=== PATIENT | male | born 1990 | race Caucasian/White ===

== ENCOUNTER 2016-11-14 23:29 | Emergency (ER) | payer OTHER ==
[~2016-11-14] VITALS: Ht 193 cm; Wt 113.8 kg
[~2016-11-14 23:29] MED LIST: CLR10 PO; FURO40TA3 PO; POTA10CA28 PO
[2016-11-14 23:33] VITALS: TEMP 36.9; Ht 193 cm; Wt 113.8 kg
[2016-11-15] MEDS ORDERED: GABA800T PO (00:12)
[2016-11-15] MEDS ORDERED: CLON0.5T3 PO (00:12)
[2016-11-15] MEDS ORDERED: CTP1X PO (00:14)
[2016-11-15] MEDS ORDERED: PRLSR20 PO (00:15)
[2016-11-15] MEDS ORDERED: SERT-234 PO (00:20)
[2016-11-15] MEDS ORDERED: QUET1TAB37 PO (00:20)
[2016-11-15] MEDS ORDERED: QUET1TAB10 PO (00:22)
[2016-11-15] MEDS ORDERED: SRQ200 PO (00:24)
[2016-11-15] MEDS ORDERED: DIPH25TA32 PO (00:25)
[2016-11-15] MEDS ORDERED: [UNRECOGNIZED DRUG - CODE] TOP (00:28)
[2016-11-15] MEDS ORDERED: IBUP-1427 PO (00:28)
[2016-11-15] MEDS ORDERED: CHLO1TAB45 PO (00:30)
[2016-11-15] MEDS ORDERED: BENZ1GEL2 PO (00:32)
[2016-11-15] MEDS ORDERED: ALUM-30 PO (00:34)
[2016-11-15] MEDS ORDERED: MOMLX PO (00:34)
[2016-11-15] MEDS ORDERED: [UNRECOGNIZED DRUG - CODE] PO (00:35)
[2016-11-15 00:39] LABS: BASO % 0.6 %; BASO ABS # 0.05 K/uL (0-0.2); COMPLETE YES; HEMATOCRIT 37.6 % (42-52); LYMPH % 28.4 %; LYMPH ABS # 2.27 K/uL (1.2-3.4); MEAN CELL VOLUME 85.5 fL (80-100); MEAN CORPUSCULAR HEMOGLOBIN 29.5 pg (25-34); MEAN CORPUSCULAR HGB CONC 34.6 g/dl (32-36); MEAN PLATELET VOLUME 9.5 fL (7.4-10.4); MONO % 10.6 %; NEUT % 56.4 %; PLATELET COUNT 272 K/uL (130-400); WHITE BLOOD COUNT 7.99 K/uL (4.8-10.8)
[2016-11-15 01:13] LABS: ALT/SGPT 65 U/L (12-78); AST/SGOT 35 U/L (15-37); BLOOD UREA NITROGEN 17 mg/dl (7-18); BUN/CREATININE RATIO 19.9 (10-20); CALCIUM 8.7 mg/dl (8.5-10.1); CARBON DIOXIDE 28 mmol/L (21-32); CHLORIDE 108 mmol/L (98-107); CREATININE 0.87 mg/dl (0.60-1.40); GLUCOSE 134 mg/dl (70-99); POTASSIUM 4.1 mmol/L (3.5-5.1); SODIUM 142 mmol/L (136-145)
[2016-11-15 01:17] LABS: ALKALINE PHOSPHATASE 84 U/L (45-117)
[2016-11-15 01:35] VITALS: BP 105/73; PULSE 99; O2SAT 98
--- NOTE | 2016-11-15 01:52 | EMERGENCY ROOM VISIT NOTE ---
History Report prepared by Gino: Rod Chapa Under the Supervision of: Dr. Costa Machado M.D. First contact with patient: 23:51 Chief Complaint: SWELLING TO EXTREMITY Stated Complaint: HAND/FOOT SWELLING History of Present Illness The patient is a 26 year old male who presents to the Emergency Room with complaints of constant hand and feet swelling for over a week. The patient states that he has never had swelling like this in the past, and he was having shortness of breath earlier. He states he was outside and then when he came back and he felt short of breath briefly. He denies any chest pain. He states that he was put on Lasix 6 days ago for his swelling. He states he is drowsy currently because he did not sleep last night. The patient additionally states that he is on Thorazine and Seroquel which make him sleepy. He notes that he has foot pain on the bottom of his feet when he walks but otherwise denies leg pain. Source of History: patient Onset: over a week ago Position: hand (bilateral), foot (bilateral) Quality: other (swelling) Timing: constant Associated Symptoms: + SOB Review of Systems See HPI for pertinent positives & negatives. A total of 10 systems reviewed and were otherwise negative. Past Medical & Surgical Medical Problems: (1) Drug abuse Social History Smoking Status: Current Every Day Smoker Marital Status: single Occupation Status: unemployed Current/Historical Medications Scheduled Clonazepam (Klonopin), 0.5 MG PO TID Clonidine HCl (Clonidine HCl), 0.1 MG PO AMHS Furosemide (Lasix), 40 MG PO QAM Gabapentin (Neurontin), 800 MG PO QID Loratadine (Claritin), 10 MG PO QAM Omeprazole (Prilosec), 20 MG PO DAILY Potassium Chloride (Micro-K Ext Rel), 10 MEQ PO QAM Quetiapine Fumarate (Seroquel), 300 MG PO HS Quetiapine Fumarate (Seroquel), 200 MG PO HS Quetiapine Fumarate (Seroquel), 200 MG PO bid @ 0900 & 1400 Sertraline (Zoloft), 100 MG PO QAM Scheduled PRN Alum & Mag Hydrox-Simethicone (Mylanta), 30 ML PO QID PRN for gastric distress Benzocaine (Dental) (Oral Analgesic Maximum St), 1 APPLN PO Q4 PRN for mouth pain Chlorpromazine Hcl (Thorazine), 100 MG PO Q4 PRN for psychosis/agitation Diphenhydramine Hcl (Diphenhydramine Hcl), 25 MG PO TID PRN for Anxiety Hydrocortisone (Topical) (Cortaid Maximum Strength), 1 APPLN TOP BID PRN for eczema Ibuprofen Tab (Motrin), 600 MG PO Q6 PRN for Pain Magnesium Hydroxide (Milk of Magnesia), 30 ML PO DAILY PRN for Constipation Nicotine Polacrilex (Nicotine), 2 PIECE PO UD PRN for smoke break Allergies Coded Allergies: Lorazepam (Verified Allergy, Unknown, unknown, 11/15/16) Physical Exam Vital Signs Date Time Temp Pulse Resp B/P (MAP) Pulse Ox O2 Delivery O2 Flow Rate FiO2 11/15/16 01:35 99 18 105/73 98 Room Air 11/14/16 23:33 36.9 112 18 128/82 96 Room Air Physical Exam Constitutional: Vital signs reviewed. Eyes: Pupils are equal round reactive to light. Conjunctiva are noninjected. ENT: Pharynx is clear without erythema or exudate. Mucous membranes are moist. Neck supple without meningeal signs. Respiratory: Clear to auscultation bilaterally. Breath sounds are equal bilaterally. Cardiovascular: Regular rate and rhythm. No rubs or gallops. GI: Soft, nondistended and nontender. Bowel sounds are present. Musculoskeletal: Pedal edema. No significant swelling to the hands. No calf tenderness. Integumentary: No cyanosis. Neurological: The patient is drowsy. No focal deficits. Psychiatric: Normal affect. Medical Decision & Procedures ER Provider Diagnostic Interpretation: Chest x-ray per my interpretation shows no acute cardiopulmonary process. There is no evidence of pulmonary edema or cardiomegaly. Doppler ultrasound showed no signs of DVT. It showed some groin lymphadenopathy. Laboratory Results 11/15/16 00:27 Red Blood Count 4.40, Mean Corpuscular Volume 85.5, Mean Corpuscular Hemoglobin 29.5, Mean Corpuscular Hemoglobin Concent 34.6, Mean Platelet Volume 9.5, Neutrophils (%) (Auto) 56.4, Lymphocytes (%) (Auto) 28.4, Monocytes (%) (Auto) 10.6, Eosinophils (%) (Auto) 3.0, Basophils (%) (Auto) 0.6, Neutrophils # (Auto ) 4.50, Lymphocytes # (Auto) 2.27, Monocytes # (Auto) 0.85, Eosinophils # (Auto ) 0.24, Basophils # (Auto) 0.05 11/15/16 00:27 Test 11/15/16 00:27 White Blood Count 7.99 K/uL (4.8-10.8) Red Blood Count 4.40 M/uL (4.7-6.1) Hemoglobin 13.0 g/dL (14.0-18.0) Hematocrit 37.6 % (42-52) Mean Corpuscular Volume 85.5 fL (80-100) Mean Corpuscular Hemoglobin 29.5 pg (25-34) Mean Corpuscular Hemoglobin Concent 34.6 g/dl (32-36) Platelet Count 272 K/uL (130-400) Mean Platelet Volume 9.5 fL (7.4-10.4) Neutrophils (%) (Auto) 56.4 % Lymphocytes (%) (Auto) 28.4 % Monocytes (%) (Auto) 10.6 % Eosinophils (%) (Auto) 3.0 % Basophils (%) (Auto) 0.6 % Neutrophils # (Auto) 4.50 K/uL (1.4-6.5) Lymphocytes # (Auto) 2.27 K/uL (1.2-3.4) Monocytes # (Auto) 0.85 K/uL (0.11-0.59) Eosinophils # (Auto) 0.24 K/uL (0-0.5) Basophils # (Auto) 0.05 K/uL (0-0.2) RDW Standard Deviation 48.0 fL (36.4-46.3) RDW Coefficient of Variation 15.2 % (11.5-14.5) Immature Granulocyte % (Auto) 1.0 % Immature Granulocyte # (Auto) 0.08 K/uL (0.00-0.02) Anion Gap 6.0 mmol/L (3-11) Est Creatinine Clear Calc Drug Dose 174.5 ml/min Estimated GFR () 136.1 Estimated GFR (Non- 117.5 BUN/Creatinine Ratio 19.9 (10-20) Calcium Level 8.7 mg/dl (8.5-10.1) Total Bilirubin 0.2 mg/dl (0.2-1) Direct Bilirubin < 0.1 mg/dl (0-0.2) Aspartate Amino Transf (AST/SGOT) 35 U/L (15-37) Alanine Aminotransferase (ALT/SGPT) 65 U/L (12-78) Alkaline Phosphatase 84 U/L (45-117) Pro-B-Type Natriuretic Peptide 32 pg/ml (0-450) Total Protein 6.7 gm/dl (6.4-8.2) Albumin 3.6 gm/dl (3.4-5.0) Laboratory results as reviewed by me. ED Course 2351: The patient was evaluated in room A2. A complete history and physical exam was performed. 0142: I discussed the test results with the patient. Medical Decision This is a 26-year-old male presents with edema. Differential diagnosis includes nephrotic syndrome, liver disease, anasarca, DVT, dependent edema. I did perform a limited focused review of portions of the patient's old chart on the electronic medical record. The patient has had no recent pertinent visits to this hospital. I did evaluate the patient as noted above. The patient has had a week of swelling to his hands and feet. He states mostly his feet are bothering him. He states it hurts when he walk. He is on Lasix currently. IV access was established. The patient was placed on a continuous airline pilot. I did order and personally review the patient's chest x-ray as described above. I did order and review the patient's blood work as noted in the electronic medical record. Renal function is normal. LFTs are unremarkable. BNP is not elevated. I did order Doppler ultrasounds of the lower extremities. I did review the images myself as well as the radiology report as described above. There is no evidence of DVT. He does have some groin lymphadenopathy. I did discuss the test results with the patient. He was advised follow closely with his doctor for further evaluation and care. He was transferred back to the [facility] in good condition. Medication Reconcilliation Current Medication List: was personally reviewed by me Blood Pressure Screening Patient's blood pressure: Normal blood pressure Impression Primary Impression: Peripheral edema Scribe Attestation The scribe's documentation has been prepared under my direct and personally reviewed by me in its entirety. I confirm that the note above accurately reflects all work, treatment, procedures, and medical decision making performed by me. Departure Information Dispostion Mental Health Acute Care Referrals [facility] (PCP) Forms HOME CARE DOCUMENTATION FORM, IMPORTANT VISIT INFORMATION, WORK / SCHOOL INSTRUCTIONS Patient Instructions My [facility] Additional Instructions You have been examined and treated today on an emergency basis only. This is not a substitute for, or an effort to provide, complete comprehensive medical care. It is impossible to recognize and treat all injuries or illnesses in a single emergency department visit. It is therefore important that you follow up closely with your physician. Call as soon as possible for an appointment. Return for worsening symptoms or if you develop fever, vomiting, chest pain or any other concerning symptoms.
--- NOTE | 2016-11-15 06:39 | DIAGNOSTIC IMAGING REPORT ---
CHEST 2 VIEWS ROUTINE CLINICAL HISTORY: Shortness of breath. COMPARISON STUDY: No previous studies for comparison. FINDINGS: Lung volumes are normal. No pneumothorax or pleural effusion is present. There is no consolidation. Pulmonary vascularity is normal. Mild interstitial prominence is noted. Cardiomediastinal silhouette is normal. IMPRESSION: 1. No consolidation. 2. Interstitial prominence which is likely within normal limits. A mild infectious process could appear similar. Electronically signed by: Kevan Uribe M.D. 11/15/2016 6:38 AM Dictated Date/Time: 11/15/2016 6:37 AM
--- NOTE | 2016-11-15 07:02 | DIAGNOSTIC IMAGING REPORT ---
VENOUS DOPPLER LWR EXT BILA CLINICAL HISTORY: 26 years-old Male presenting with eval for dvt. TECHNIQUE: Real-time grayscale and color and spectral Doppler ultrasound imaging of the veins of the bilateral lower extremities was performed. Compression and augmentation were also utilized. COMPARISON: None. FINDINGS: Right: Common femoral vein: Patent. Femoral vein: Patent. Greater saphenous vein: Patent. Popliteal vein: Patent. Calf veins: Patent. Left: Common femoral vein: Patent. Femoral vein: Patent. Greater saphenous vein: Patent. Popliteal vein: Patent. Calf veins: Patent. Other: Prominent inguinal lymph nodes, which maintain normal fatty amparo and normal cortical thickness, likely reactive. IMPRESSION: No evidence of deep venous thrombosis. Electronically signed by: Sami Light M.D. 11/15/2016 7:01 AM Dictated Date/Time: 11/15/2016 7:00 AM
== END 2016-11-15 02:50 | disposition home or self-care (01) ==
LOC: EDBD 23:29 → C.EDA 23:34
DX: R60.9 Edema, unspecified (principal); R06.02 Shortness of breath; Z79.899 Other long term (current) drug therapy; F17.200 Nicotine dependence, unspecified, uncomplicated